=== PATIENT | female | born 1955 | race Caucasian/White ===

== ENCOUNTER 2018-07-22 07:05 | Emergency (ER) | payer MEDICARE, BC ==
[2018-07-22 07:52] LABS: BASO % 0.2 % (0-6); EOS % 0.3 % (0-6); HEMATOCRIT 42.4 % (35.0-47.0); HEMOGLOBIN 13.3 gm/dl (11.6-16.0); LYMPH % 26.6 % (16-45); MEAN CELL VOLUME 97.5 fl (81-97); MEAN CORPUSCULAR HEMOGLOBIN 30.6 pg (27-33); MEAN CORPUSCULAR HGB CONC 31.4 g/dl (32-36); MEAN PLATELET VOLUME 9.6 fl (7.4-10.4); MONO % 2.9 % (0-9); PLATELET COUNT 369 K/uL (130-400); RED BLOOD COUNT 4.35 M/uL (3.80-5.40); RED CELL DISTRIBUTION WIDTH 13.1 % (11.5-14.5); WHITE BLOOD COUNT W/O DIFF 10.1 K/uL (4.2-12.2)
--- NOTE | 2018-07-22 07:58 | Emergency Department Record ---
History of Present Illness - General Chief Complaint: Palpitations Stated Complaint: PALPITATIONS Time Seen by Provider: 07/22/18 07:30 Source: Patient Mode of Arrival: Wheelchair Limitations: No limitations - History of Present Illness Initial Comments: pt is c/o palpitations since this 430am. she has had these before and has a cadd drafter up [place] and is on verapamil and metaprolol. she states her family has a hx of WPW but she does not. she denies cp MD Complaint: Palpitations Onset/Timin -: Hour(s) Context: Occurred during rest Arrythmia History: Other Associated Symptoms: Shortness of breath - Related Data Home Medications Medication Instructions Recorded Confirmed Last Taken Azelastine HCl [Astelin] 137 mcg NS DAILY 07/22/18 07/22/18 Unknown Azithromycin 250 mg PO DAILY 07/22/18 07/22/18 Unknown Buprenorphine 1 patch TOP WEEKLY 07/22/18 07/22/18 Unknown Cyproheptadine HCl 8 mg PO DAILY 07/22/18 07/22/18 Unknown Fluticasone Propionate [Flonase] 2 spray EACH NARES DAILY 07/22/18 07/22/18 Unknown Furosemide [Lasix] 20 mg PO DAILY 07/22/18 07/22/18 Unknown Guaifenesin [Mucus ER] 600 mg PO DAILY 07/22/18 07/22/18 Unknown Ipratropium Moss [Atrovent Hfa] 12.9 gm IH DAILY 07/22/18 07/22/18 Unknown Methocarbamol [Robaxin] 3 tab PO TID 07/22/18 07/22/18 Unknown Metoprolol Tartrate [Lopressor] 25 mg PO TID 07/22/18 07/22/18 Unknown Multivitamin [One Daily 1 each PO DAILY 07/22/18 07/22/18 Unknown Multivitamin] Prednisone [Prednisone 20Mg] 40 mg PO DAILY 07/22/18 07/22/18 Unknown Strontium Chloride Hexahydrate 600 mg PO BID 07/22/18 07/22/18 Unknown Verapamil HCl [Verapamil Sr] 180 mg PO BID 07/22/18 07/22/18 Unknown Allergies Allergy/AdvReac Type Severity Reaction Status Date / Time codeine Allergy ITCHING Verified 07/22/18 07:21 legumes Allergy ITCHING Verified 07/22/18 07:21 wheat Allergy ITCHING Verified 07/22/18 07:21 Travel Screening - Travel/Exposure Within Last 30 Days Have you traveled within the last 30 days?: No Review of Systems Reviewed: No additional complaints except as noted below Constitutional: Reports: As per HPI. Denies: Chills, Fever, Malaise, Night sweats, Weakness, Weight change Eyes: Reports: As per HPI. Denies: Eye discharge, Eye pain, Photophobia, Vision change ENT: Reports: As per HPI. Denies: Congestion, Dental pain, Ear pain, Epistaxis , Hearing loss, Throat pain Respiratory: Reports: As per HPI. Denies: Cough, Dyspnea, Hemoptysis, Stridor, Wheezes Cardiovascular: Reports: As per HPI, Palpitations. Denies: Arrhythmia, Chest pain, Dyspnea on exertion, Edema, Murmurs, Orthopnea, Paroxysmal nocturnal dyspnea, Rheumatic Fever, Syncope Endocrine: Reports: As per HPI. Denies: Fatigue, Heat or cold intolerance, Polydipsia, Polyuria Gastrointestinal: Reports: As per HPI. Denies: Abdominal pain, Constipation, Diarrhea, Hematemesis, Hematochezia, Melena, Nausea, Vomiting Genitourinary: Reports: As per HPI. Denies: Abnormal menses, Discharge, Dyspareunia, Dysuria, Frequency, Hematuria, Incontinence, Retention, Urgency Musculoskeletal: Reports: As per HPI. Denies: Arthralgia, Back pain, Gout, Joint swelling, Myalgia, Neck pain Skin: Reports: As per HPI. Denies: Bruising, Change in color, Change in hair/ nails, Lesions, Pruritus, Rash Neurological: Reports: As per HPI. Denies: Abnormal gait, Confusion, Headache, Numbness, Paresthesias, Seizure, Tingling, Tremors, Vertigo, Weakness Psychiatric: Reports: As per HPI. Denies: Anxiety, Auditory hallucinations, Depression, Homicidal thoughts, Suicidal thoughts, Visual hallucinations Hematological/Lymphatic: Reports: As per HPI. Denies: Anemia, Blood Clots, Easy bleeding, Easy bruising, Swollen glands Past Medical History - SOCIAL HISTORY Smoking Status: Never smoker Alcohol Use: None Drug Use: None - RESPIRATORY Hx Respiratory Disorders: Yes Hx Asthma: Yes Comment:: right lung insuffiency due to scoliosis/brochieptesis - CARDIOVASCULAR Hx Cardio Disorders: Yes Hx Hypertension: Yes Hx Palpitations: Yes Comment:: WPW - NEURO Hx Neuro Disorders: No - GI Hx GI Disorders: No - Hx Genitourinary Disorders: No - ENDOCRINE Hx Endocrine Disorders: No - MUSCULOSKELETAL Hx Musculoskeletal Disorders: Yes Comment:: alisa koch - PSYCH Hx Psych Problems: No - HEMATOLOGY/ONCOLOGY Hx Hematology/Oncology Disorders: Yes Hx Cancer: Yes (skin) Hx Chemotherapy: No Hx Radiation Therapy: No Family Medical History Any Significant Family History?: No Physical Exam - General General Appearance: Alert, Oriented x3, Cooperative, Mild distress - Head Head exam: Normal inspection - Eye Eye exam: Normal appearance, PERRL, EOMI Pupils: Normal accommodation - ENT ENT exam: Normal exam, Mucous membranes moist, Normal external ear exam, Normal orophraynx Ear exam: Normal external inspection. negative: External canal tenderness Nasal Exam: Normal inspection. negative: Discharge, Sinus tenderness Mouth exam: Normal external inspection, Tongue normal Teeth exam: Normal inspection. negative: Dental caries Throat exam: Normal inspection. negative: Tonsillar erythema, Tonsillar exudate - Neck Neck exam: Normal inspection, Full ROM. negative: Tenderness - Respiratory Respiratory exam: Normal lung sounds bilaterally. negative: Respiratory distress - Cardiovascular Cardiovascular Exam: Normal rhythm, Normal heart sounds, Tachycardia - GI/Abdominal GI/Abdominal exam: Soft, Normal bowel sounds. negative: Tenderness - Rectal Rectal exam: Deferred - exam: Deferred - Extremities Extremities exam: Normal inspection, Full ROM, Normal capillary refill. negative: Tenderness - Back Back exam: Reports: Normal inspection, Full ROM. Denies: Muscle spasm, Rash noted, Tenderness - Neurological Neurological exam: Alert, Normal gait, Oriented X3, Reflexes normal - Psychiatric Psychiatric exam: Normal affect, Normal mood - Skin Skin exam: Dry, Intact, Normal color, Warm Course Vital Signs 07/22/18 07:09 Pulse Rate 110 H Respiratory 20 Rate Blood Pressure 150/93 Pulse Ox 98 - Reevaluation(s) Reevaluation #1: 07/22/18 10:20 pt contd to do well.hr 104. no episodes of cp. no arrythmias seen Medical Decision Making - Lab Data Result diagrams: 07/22/18 07:20 07/22/18 07:20 Disposition Disposition: Discharge Clinical Impression: Palpitations Disposition: Home, Self-Care Condition: (1) Good Instructions: Heart Palpitations (ED) Additional Instructions: follow up with family doc cadd drafter. return sooner if worse. rest. no caffeine. stop steroids. Forms: Patient Portal Access Quality - Quality Measures Quality Measures: N/A - Blood Pressure Screening Does Patient Have Any of the Following: Active Dx of HTN Blood Pressure Classification: Hypertensive Reading Systolic Measurement: 150 Diastolic Measurement: 93 Screening for High Blood Pressure: Patient Exclusion, Hx of HTN [G9744]
[2018-07-22 08:06] LABS: BILIRUBIN,TOTAL < 0.20 mg/dL (0.2-1.0); BLOOD UREA NITROGEN 18 mg/dL (8-23); CREATININE 0.6 mg/dL (0.5-0.9); EST GLOMERULAR FILTRATION RATE > 60 mL/min
[2018-07-22 08:07] LABS: TOTAL PROTEIN 7.6 g/dL (6.6-8.7)
[2018-07-22 08:09] LABS: GLUCOSE,RANDOM 159 mg/dL (74-109)
[2018-07-22 08:12] LABS: ALB/GLOB RATIO 1.5 (1.1-1.8); ALBUMIN 4.5 g/dL (4.0-5.0); ALKALINE PHOSPHATASE 82 U/L (35-104); ALT/SGPT 18 U/L (<33); AST/SGOT 17 U/L (10.0-35.0)
[2018-07-22 08:22] LABS: THYROID STIMULATING HORMONE 1.95 uIU/mL (0.270-4.20)
[2018-07-22] MEDS ORDERED: 0.9 % SODIUM CHLORIDE 1,000 ML BAG IV ONE (09:14)
--- NOTE | 2018-07-24 11:03 | RADIOLOGY REPORT ---
EXAM: CHEST 2 VIEWS HISTORY: DIFFICULTY IN BREATHING. TECHNIQUE: Frontal and lateral views of the chest were performed. FINDINGS: Heart size is upper limits of normal. There is a severe scoliotic curvature within the thoracic spine. Lungs are hyperinflated. No infiltrate or pleural effusion. IMPRESSION: 1. NO ACUTE PULMONARY DISEASE PROCESS. 2. SEVERE SCOLIOSIS OF THE THORACOLUMBAR SPINE. JOB NUMBER: [id number] MTDD
== END 2018-07-22 10:54 | disposition home or self-care (01) ==
LOC: ER 07:05
DX: R00.2 Palpitations (principal); R06.00 Dyspnea, unspecified; I10 Essential (primary) hypertension
CPT/HCPCS: 71046; 80053; 84443; 84484; 85025; 85379; 93005; 93010; 99284; J7030

== ENCOUNTER 2019-05-11 14:04 | Emergency (ER) | payer MEDICARE, BC ==
--- NOTE | 2019-05-11 14:51 | Emergency Department Record ---
History of Present Illness - General Chief complaint: Avulsion Stated complaint: LAC,RT INDEX Time Seen by Provider: 05/11/19 14:34 Source: Patient Mode of Arrival: Ambulatory Limitations: No limitations - History of Present Illness Initial comments: The patient cut her R 2nd finger on a broken glass about an hour ago. The bleeding has stopped at this time but she does have a small laceration. The patient is not sure if her Td is UTD. MD Complaint: Extremity pain Onset/Timin -: Minutes(s) Location: Right, Hand History of Same: No Improves with: Nothing Worsens with: Nothing Associated Symptoms: Denies other symptoms - Related Data Allergies Allergy/AdvReac Type Severity Reaction Status Date / Time codeine Allergy ITCHING Verified 07/22/18 07:21 legumes Allergy ITCHING Verified 07/22/18 07:21 peanut Allergy ITCHING Verified 05/11/19 14:33 wheat Allergy ITCHING Verified 07/22/18 07:21 Travel Screening - Travel/Exposure Within Last 30 Days Have you traveled within the last 30 days?: No Review of Systems Constitutional: Denies: Chills, Fever Past Medical History - SOCIAL HISTORY Smoking Status: Never smoker Alcohol Use: None Drug Use: None - RESPIRATORY Hx Respiratory Disorders: Yes Hx Asthma: Yes Comment:: right lung insuffiency due to scoliosis/brochieptesis,wears O2 - CARDIOVASCULAR Hx Cardio Disorders: Yes Hx Hypertension: Yes Hx Palpitations: Yes Comment:: WPW - NEURO Hx Neuro Disorders: No - GI Hx GI Disorders: No - Hx Genitourinary Disorders: No - ENDOCRINE Hx Endocrine Disorders: No - MUSCULOSKELETAL Hx Musculoskeletal Disorders: Yes Comment:: alisa koch - PSYCH Hx Psych Problems: No - HEMATOLOGY/ONCOLOGY Hx Hematology/Oncology Disorders: Yes Hx Cancer: Yes (skin) Hx Chemotherapy: No Hx Radiation Therapy: No Family Medical History Any Significant Family History?: No Physical Exam - General General Appearance: Alert, Cooperative - Head Head exam: Atraumatic - Eye Eye exam: Normal appearance - Extremities Extremities exam: Normal capillary refill, Tenderness (at the lac.), Other (The R 2nd finger is NVI distally with normal tendon function.). negative: Normal inspection (There is a 5 mm skin flap avulsion to the mid R 2nd finger over the PIP joint area radial side. The lac is very superficial and not thru the dermis.) - Neurological Neurological exam: Alert. negative: Motor sensory deficit Course Vital Signs 05/11/19 14:29 Temperature 98.7 F Pulse Rate [ 102 H Pulse Ox Probe] Respiratory 20 Rate Blood Pressure 164/97 [Left Arm] Pulse Ox 92 L - Reevaluation(s) Reevaluation #1: Procedure note: the R 2nd finger lac was cleansed with betadine and sterile saline and steri-strips were applied. The lac was too superficial to suture. There were no complications. 05/11/19 14:47 Reevaluation #2: I did discuss the need to keep the finger dry and to try to not bend it. The flap also may due to it being so superficial so the patient does understand that. She also is refusing her Td shot and understands the risks of acquiring Tetanus. 05/11/19 14:48 Disposition Disposition: Discharge Clinical Impression: Avulsion of skin of finger Qualifiers: Encounter type: initial encounter Qualified Code(s): S61.209A - Unspecified open wound of unspecified finger without damage to nail, initial encounter Disposition: Home, Self-Care Condition: (2) Stable Instructions: Finger Laceration (ED) Additional Instructions: Keep dry for 3 days then keep a bandaid on during the day. Please watch for signs of infection. Return to the ER for any problems. Forms: Patient Portal Access Time of Disposition: 14:50 Quality - Quality Measures Quality Measures: N/A - Blood Pressure Screening View Details: Yes Does Patient Have Any of the Following: Active Dx of HTN Blood Pressure Classification: Hypertensive Reading Systolic Measurement: 164 Diastolic Measurement: 97 Screening for High Blood Pressure: Patient Exclusion, Hx of HTN [G9744]
== END 2019-05-11 15:05 | disposition home or self-care (01) ==
LOC: ER 14:04
DX: S61.210A Laceration without foreign body of right index finger without damage to nail, initial encounter (principal); W25.XXXA Contact with sharp glass, initial encounter; Y92.000 Kitchen of unspecified non-institutional (private) residence as the place of occurrence of the external cause
CPT/HCPCS: 99283